=== PATIENT | female | born 1985 | race Caucasian/White ===

== ENCOUNTER 2018-01-13 12:49 | Emergency (ER) | END 2018-01-13 15:50 | disposition home or self-care (01) ==

== ENCOUNTER 2018-02-08 14:47 | Emergency (ER) | END 2018-02-08 16:51 | disposition home or self-care (01) ==

== ENCOUNTER 2018-07-29 16:48 | Emergency (ER) | END 2018-07-29 22:09 | disposition home or self-care (01) ==